=== PATIENT | male | born 1975 | race Hispanic/Latino ===

== ENCOUNTER 2017-08-10 10:43 | Outpatient (CLI) | payer BC ==
--- NOTE | 2017-08-10 11:52 | RAD ---
LUMBAR SPINE 2 VIEWS: Date: 08/10/17 HISTORY: 41-year-old male with history of low back pain for the past 2 weeks without injury or surgery. 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 FINDINGS: Disc spaces are adequately preserved. No evidence for acute fracture, dislocation, or significant mal alignment. IMPRESSION: Unremarkable lumbar spine. No significant acute process. POS: C
== END 2017-08-10 10:44 | disposition home or self-care (01) ==
LOC: SCSRAD 10:43
PROVIDERS: ATTEND Psychiatry & Neurology Neurology
DX: I66.01 Occlusion and stenosis of right middle cerebral artery (principal)
CPT/HCPCS: 72100

== ENCOUNTER 2020-12-18 11:41 | Outpatient (CLI) | payer BC | END 2020-12-18 11:42 | disposition home or self-care (01) | LOC: BICRAD 11:41 | PROVIDERS: ATTEND Internal Medicine Cardiovascular Disease | DX: U07.1 COVID-19 (principal); J12.82 Pneumonia due to coronavirus disease 2019 | CPT/HCPCS: 71046 ==